=== PATIENT | male | born 1985 | race Caucasian/White ===

== ENCOUNTER 2019-05-11 21:43 | Inpatient (IN) ==
[2019-05-11] MEDS ORDERED: NS 1,000 ML IV ONE (23:29)
--- NOTE | 2019-05-11 23:43 | PROVIDER DOCUMENTATION ---
HPI-General Adult - General Chief Complaint: Syncope Stated Complaint: N/V, SYNCOPE Time Seen by Provider: 05/11/19 23:28 Source: patient Allergies/Adverse Reactions: Patient Allergies Allergy/AdvReac Type Severity Reaction Status Date / Time cefaclor [From Ceclor] Allergy Unknown Verified 05/11/19 21:51 cephalexin [From Keflex] Allergy Unknown Verified 05/11/19 21:51 erythromycin base Allergy Unknown Verified 05/11/19 21:51 Penicillins Allergy Unknown Verified 05/11/19 21:51 Home Medications: Home Medication List Medication Instructions Recorded Confirmed Last Taken Type NK [No Home Medications] 05/11/19 05/11/19 Unknown History - History of Present Illness -Gen Adult Nature of Presenting Problems: 33 YOM WITH RECENT BACTERMIA WITH HEART VALVE INVOLVEMENT WHO LEFT AMA FROM [facility] REPORTS HE IS HAVING THE SAME SYMPTOMS, WHICH ARE WEAKNESS, N/V AND SYNCOPAL EPISODE THIS AM. DENIES SOB, CP, DIARRHEA Location of Pain/Injury: reports: none Pain Radiation: reports: no radiation Quality of Pain: reports: none Severity: reports: moderate Onset/Duration: reports: unsure Timing: reports: still present Context/Activities at Onset: reports: none Modifying Factors: improves with: nothing Associated Symptoms: reports: nausea, vomiting Similar Symptoms Previously?: No Recently seen or treated by another doctor?: No Review of Systems - Adult - REVIEW OF SYSTEMS - ADULT Constitutional: reports: no symptoms reported. denies: see HPI, chills, fever, fatique, night sweats, weight gain, weight loss, other Eyes: reports: no symptoms reported. denies: see HPI, discharge, dry eyes, decreased vision, blurred vision, double vision, eye pain, redness, other Ears, Nose, Mouth & Throat: reports: no symptoms reported. denies: see HPI, ear discharge, ear pain, hearing loss, tinnitus, epistaxis, sinus problem, nose pain, loose teeth, mouth/dental pain, mouth swelling, hoarseness, throat pain, throat swelling, other Cardiovascular: reports: no symptoms reported. denies: see HPI, chest pain, edema, heart murmur, irregular heart rate, orthopnea, palpitations, poor circulation, PND, syncope, other Respiratory: reports: no symptoms reported. denies: see HPI, chronic cough, cough, dyspnea on exertion, excessive sputum production, hemoptysis, pleurisy, shortness of breath, wheezing, other Gastrointestinal: reports: see HPI, nausea, vomiting. denies: no symptoms reported, abdominal pain, hematemesis, constipation, diarrhea, difficulty swallowing, frequent heartburn, poor appetite, rectal bleeding, other Genitourinary: reports: no symptoms reported. denies: see HPI, dysuria, discharge, frequency, flank pain, frequent UTI's, hematuria, hesitency, i ncontinence, urinary retention, urgency, other Musculoskeletal: reports: no symptoms reported. denies: see HPI, bone pain, back pain, frequent leg cramps, joint pain, joint swelling, muscle aches, muscle weakness, neck pain, other Integumentary: reports: no symptoms reported. denies: see HPI, hives, hair loss, itching, mole changes, nail changes, rash, skin sores/ulcer, skin thickening, other Neurological: reports: see HPI, syncope Psychiatric: reports: no symptoms reported. denies: see HPI, anxiety, anti- depressant use, alcohol/drug dependence, depression, emotional problems, insomnia, panic attacks, suicidal thoughts, other Endocrine: reports: no symptoms reported. denies: see HPI, change in skin pigment, excessive sweating, goiter, cold intolerance, heat intolerance, increased hunger, increased thirst, polyuria, other Hematologic/Lymphatic: reports: no symptoms reported. denies: see HPI, blood clots, easy bruising, low blood count, lymphedema, prolonged bleeding, swollen lymph nodes, transfusions, other Allergic/Immunologic: reports: no symptoms reported. denies: see HPI, allergic reactions, allergic rhinitis, asthma, eczema, food allergy, frequent infections, hay fever, hives, positive PPD, urticaria, other Past History - Adult - PAST MEDICAL HISTORY-ADULT Review of Records: reports: Nursing Assessment Review, Social history reviewed & non-contributory. Physical Exam-General - PHYSICAL EXAM-ADULT Initial Vital Signs Reviewed: Yes - CONSTITUTIONAL General Appearance: alert, no apparent distress - EYES Eyes: PERRL/EOMI, pink conjunctivae - HEAD, EARS, NOSE, MOUTH & THROAT HENMT: normocephalic/atraumatic, moist mucous membranes, normal ENT inspection - NECK Neck: non-tender, full range of motion, supple - RESPIRATORY Respiratory: chest non-tender, lungs clear, normal breath sounds, no pleuratic chest pain, no respiratory distress, no accessory muscle use - CARDIOVASCULAR Cardiovascular: normal peripheral pulses, regular rate, rhythm, no edema, no gallop, no JVD - GASTROINTESTINAL (ABDOMEN) Abdominal Exam: normal bowel sounds, non tender, soft - LYMPHATIC Lymphatic: no adenopathy - MUSCULOSKELETAL Back Exam: normal inspection, no CVA tenderness, no vertebral tenderness Extremity: normal range of motion, non-tender, normal gait - SKIN Integumentary: normal color, normal turgor, warm/dry - NEUROLOGIC Neurologic: grossly normal - PSYCHIATRIC Psych/Mental Status: normal mood/affect, oriented x 3 Progress - PLAN OF CARE/RESULTS Progress/Plan/Lab Results: Vital Signs - 8 hr 05/11/19 21:46 Temperature 98.1 F Pulse Rate 99 H Respiratory Rate 16 Blood Pressure 138/104 O2 Sat by Pulse Oximetry 97 Orders Category Date Time Status Saline Loc NOW Care 05/11/19 23:29 Active CHEST-2 VIEWS [RAD] Stat Exams 05/11/19 23:29 Ordered BLOOD CULTURE [BLDCUL] Stat Lab 05/11/19 23:29 Uncollected CBC WITH ELECTRONIC DIFF [HEME] Stat Lab 05/11/19 23:28 Uncollected COMPREHENSIVE METABOLIC PANEL [CHEM] Stat Lab 05/11/19 23:29 Uncollected LACTATE, PLASMA [CHEM] Stat Lab 05/11/19 23:29 Uncollected 0.9% Sodium Chloride Inj [Ns] 1,000 ml Med 05/11/19 23:29 Active IV 999 mls/hr EKG [EKG] Stat Ther 05/11/19 23:29 Ordered Result Diagrams: 05/12/19 00:00 - CHANGE OF SHIFT REPORT (ED Provider) 1 Report Given and Care Transferred to:: DR CHASE Time of Transfer: 01:00 Items Pending: Labs, XRAY Results, Other (EKG) Departure - Departure Referrals and Follow-Ups: None,PCP [Primary Care Provider] -
[2019-05-12 00:32] LABS: BASO# 0.05 X1000 (0.0-0.2); BASO% 0.6 % (0.0-0.8); EOS# 0.69 X1000 (0.0-0.7); EOS% 8.2 % (0.0-10.0); HEMOGLOBIN 12.7 g/dL (14.0-18.0); IMM GRAN# 0.01 X1000 (0.0-0.04); IMM GRAN% 0.1 % (0.0-0.5); LYMPH# 3.72 X1000 (1.2-3.4); LYMPH% 44.2 % (20.5-51.1); MCHC 33.4 g/dL (33-37); MCV 89.6 FL (81-99); MONO# 0.75 X1000 (0.11-0.59); MONO% 8.9 % (1.7-9.3); MPV 12.1 FL (7.4-10.4); NEUT# 3.19 X1000 (1.4-6.5); PLT 235 X1000 (130-400); RBC 4.24 XMIL (4.7-6.1); RDW 12.5 % (11.5-14.5); WBC 8.41 X1000 (4.8-10.8)
[2019-05-12] MEDS ORDERED: ZOFRAN IV ONE (00:34)
[2019-05-12 00:56] LABS: MAGNESIUM 1.9 mg/dL (1.5-2.7)
[2019-05-12 00:57] LABS: AGAP 11; BUN 11 mg/dL (8-22); CALCIUM 8.9 mg/dL (8.8-10.2); CHLORIDE 101 mmol/L (98-107); COSMO 276; CREATININE 0.6 mg/dL (0.7-1.2); ESTIMATED GFR > 60; GLUCOSE 89 mg/dL (70-104); POTASSIUM 4.3 mmol/L (3.5-5.1); SODIUM 139 mmol/L (136-145); TCO2 27 mmol/L (25-35); TOTAL PROTEIN 7.4 g/dL (6.3-8.3)
[2019-05-12 00:58] LABS: ALBUMIN 4.4 g/dL (3.5-5.0); ALKALINE PHOSPHATASE 61 U/L (32-122); GOT 50 U/L (10-34); GPT 75 U/L (10-44)
[2019-05-12 01:24] LABS: INR 1.01; PROTIME 13.8 Seconds (11.0-16.0)
[2019-05-12 01:25] LABS: PTT 52.1 Seconds (22.3-41.8)
[2019-05-12 01:30] LABS: CK INDEX 0.7 (0.0-2.5); CK-MB 1.64 ng/mL (0.0-5.0)
[2019-05-12 02:30] LABS: BILIRUBIN URINE NEGATIVE (NEGATIVE); BLOOD URINE NEGATIVE (NEGATIVE); CLARITY CLEAR (CLEAR); COLOR YELLOW; GLUCOSE URINE NEGATIVE (NEGATIVE); KETONE URINE TRACE mg/dL (NEGATIVE); LEUKOCYTES URINE TRACE (NEGATIVE); NITRITE URINE NEGATIVE (NEGATIVE); PH URINE 6.5; PROTEIN URINE TRACE mg/dL (NEGATIVE); SP GRAVITY URINE 1.015; UROBILINOGEN URINE NORMAL
[2019-05-12 02:32] LABS: URINE BACTERIA 2+ /HFP; URINE EPITHELIAL CELLS <10 /HPF (<10); URINE RBC <10 /HPF (<10); URINE SOURCE CLEAN CATCH; URINE WBC <10 /HPF (<10)
[2019-05-12 02:56] LABS: UR AMPHETAMINES QUAL NONE DETECTED (NONE DETECT); UR BARBITUATES QUAL NONE DETECTED (NONE DETECT); UR BENZODIAZEPIN QUAL NONE DETECTED (NONE DETECT); UR CANNABINOIDS QUAL NONE DETECTED (NONE DETECT); UR COCAINE QUAL NONE DETECTED (NONE DETECT); UR METHADONE QUAL NONE DETECTED (NONE DETECT); UR METHAMPHETAMINE QUAL PRESUMPTIVE POSITIVE (NONE DETECT); UR OPIATES QUAL NONE DETECTED (NONE DETECT); UR OXYCODONE QUAL NONE DETECTED (NONE DETECT); UR PCP QUAL NONE DETECTED (NONE DETECT); UR PROPOXYPHENE QUAL NONE DETECTED (NONE DETECT); UR TCA QUAL NONE DETECTED (NONE DETECT)
--- NOTE | 2019-05-12 04:16 | EKG Report ---
Test Performed on : 05/12/2019 00:51:01 AM Test Reason : cp Blood Pressure : / mmHG Vent. Rate : 060 BPM Atrial Rate : 060 BPM P-R Int : 148 ms QRS Dur : 094 ms QT Int : 414 ms P-R-T Axes : 061 064 065 degrees QTc Int : 414 ms Normal sinus rhythm. Normal ECG No previous ECGs available Unconfirmed Result
--- NOTE | 2019-05-12 08:01 | Diag Imaging Result Doc PS360 ---
EXAM: CHEST-2 VIEWS - 05/11/2019 HISTORY: cp TECHNIQUE: Chest two views COMPARISON: None. FINDINGS: Heart size is normal. The lungs appear clear. There is no pleural effusion or pneumothorax identified. IMPRESSION: No evidence of acute disease. Electronically signed by Goyo Richard 05/12/2019 7:58 AM
[2019-05-12] MEDS ORDERED: VANCOMYCIN 1 GM/NS 1 GM/250 ML IVPB IV ONE ×2 (08:12→15:00)
[2019-05-12] MEDS ORDERED: NS 1,000 ML IV ONE (13:55)
[2019-05-12] MEDS ORDERED: VANCOMYCIN IV PER PHARMACY MISC SCH (13:55)
--- NOTE | 2019-05-12 14:01 | HISTORY AND PHYSICAL ---
PRIMARY CARE PHYSICIAN: None. CHIEF COMPLAINT: Nausea, vomiting, weakness and dizziness that began yesterday and progressively worsened. HISTORY OF PRESENTING ILLNESS: This is a 33-year-old male who presents to [facility] ER with complaints of nausea, vomiting, weakness, and dizziness that began yesterday and progressively worsened. He states that he was in [facility] and left AM after only a 2 week treatment for an MSSA bacteremia and possible endocarditis from what we can tell from the patient. He left about a week ago and is feeling worse since leaving. He states that he has used methamphetamines in this week since he has been out of the hospital. His reason for leaving was that he was going to require approximately 6 weeks worth of treatment and he was just tired of being in the hospital according to the patient. Today his workup was essentially benign. Again his urine drug screen was presumptive positive for methamphetamines. His chest x-ray showed no evidence of acute disease. His EKG showed normal sinus rhythm at 60. He will be admitted for further evaluation and treatment and we are faxing a request to [facility] to receive their medical records on this patient. PAST MEDICAL HISTORY: Of the MSSA bacteremia and endocarditis receiving only 2 out of 6 weeks worth of treatment before leaving AMA from the hospital, hepatitis C, IV drug use and methamphetamine use and tobacco abuse. PAST SURGICAL HISTORY: Tonsillectomy. FAMILY HISTORY: Reviewed and noncontributory. SOCIAL HISTORY: He states that he is homeless. Denies alcohol use. Smokes a half a pack of cigarettes a day. He uses IV drugs, but states he has not use the IV drugs since prior to being placed in the hospital. ALLERGIES: Cefaclor, cephalexin, erythromycin and penicillin. HOME MEDICATIONS: He does not take any medications on a routine basis that are prescribed. LABORATORY DATA: Showed a white blood cell count of 8.41, hemoglobin 12.7, hematocrit 38, platelets 235,000. PT and INR of 13.8 and 1.01. Sodium 139, potassium 4.3 chloride 101, CO2 27, BUN 11, creatinine 0.6, glucose 89, magnesium 1.9. AST of 50, ALT 75, creatine kinase of 230, CK- MB of 1.64. Troponin was less than 0.010. Plasma lactate of 0.8. Urinalysis was negative except for 2+ bacteria. Urine drug screen presumptive positive for methamphetamines. Chest x-ray showed no evidence of acute disease. EKG showed normal sinus rhythm. REVIEW OF SYSTEMS: He denied any fever, chills. He was having weakness. Denied any blurred vision or dizziness, chest pain, coughing, or shortness of breath. Denied any abdominal pain. He has had nausea, vomiting, and diarrhea. Denied any burning or hurting with urination. PHYSICAL EXAMINATION: On arrival he had a temperature of 98.1 degrees, pulse 99, respirations 16, blood pressure was 138/104, saturating at 97% on room air. Currently, blood pressure is down to 125/80. GENERAL: This is a 33-year-old male who is lying in the bed and answers questions appropriately. HEENT: Normocephalic, atraumatic. Normal ENT inspection. Oropharynx and nares are clear. EYES: Pupils are equal, round, reactive to light and accommodation. Extraocular movements are intact. NECK: Normal inspection. Normal range of motion. LUNGS: Clear to auscultation bilaterally with equal lung expansion and chest wall movement. HEART: Regular rate and rhythm. No murmurs, rubs, or gallops. ABDOMEN: Soft, nontender, nondistended. Bowel sounds are present x4 quadrants. MUSCULOSKELETAL: Musculoskeletal has 5/5 strength x4 extremities. Moves all extremities well. NEUROLOGICAL: The cranial nerves 2-12 are grossly intact. ASSESSMENT: 1. Recent Methicillin sensitive Staphylococcus aureus bacteremia with endocarditis after receiving only 2 weeks of treatment and leaving [facility] against medical advice. 2. Nausea, vomiting, and diarrhea. 3. Generalized weakness. 4. History of hepatitis C with some mild liver function test elevation. 5. Tobacco abuse. 6. Polysubstance abuse. Most recent with methamphetamine positive in urine drug screen our. PLAN: 1. He will be admitted, placed on a regular diet. 2. Normal saline at 100 mL an hour, vancomycin per pharmacy protocol. 3. We are requesting records from [facility]. 4. We are going to check an echocardiogram today. 5. Further orders after reviewing his medical record and after being seen by attending. Dictated by STEPHANI Soto for Ezequiel Kowalski MD cc: STEPHANI Soto MD
[2019-05-12] MEDS: NICODERM PATCH TD SCH (17:04)
--- NOTE | 2019-05-12 23:41 | ECHO REPORT ---
ORDER DATE: 05/12/2019 MEASUREMENTS: Septal thickness 0.7, left ventricular internal diameter in diastole 4.5, posterior wall thickness 0.9, aortic root 2.4, left atrium 2.6. SUMMARY: 1. Adequate quality study. 2. Aortic valve is trileaflet and opens normally on 2-dimensional images. Peak gradient across the aortic valve is less than 10 mmHg. Mitral, tricuspid, and pulmonic valves are without evidence of structural abnormality, with mild tricuspid regurgitation and trace mitral regurgitation. The estimated systolic PA pressure by Doppler is 40 mmHg, suggesting mild pulmonary hypertension. The aortic root is normal in size. 3. Normal left ventricular dimensions demonstrated. Estimated left ventricular ejection fraction appears to be at least 60%. No regional wall motion abnormalities are evident. Left atrium, right atrium, right ventricle are normal in size with grossly preserved right ventricular systolic function. 4. No pericardial effusion. 5. Appearance of inferior vena cava suggests normal central venous pressure. CONCLUSIONS: 1. Mild tricuspid regurgitation with mild pulmonary hypertension by Doppler. 2. Trace mitral regurgitation. 3. Normal left ventricular systolic function without wall motion abnormality evident. cc: MD Ezequiel Kennedy MD
[2019-05-13] MEDS: VANCOMYCIN 1,500 MG in NS 250 ML IV SCH ×2 (02:01→14:23)
[2019-05-13] MEDS: NICODERM PATCH TD SCH (09:31)
[2019-05-13] MEDS: MOTRIN PO PRN (20:33)
[2019-05-13] MEDS: TYLENOL PO PRN (20:33)
[2019-05-14] MEDS: VANCOMYCIN 1,500 MG in NS 250 ML IV SCH (01:53)
[2019-05-14] MEDS: PRILOSEC PO SCH (06:12)
[2019-05-14 06:46] LABS: BASO# 0.03 X1000 (0.0-0.2); BASO% 0.4 % (0.0-0.8); EOS# 1.04 X1000 (0.0-0.7); EOS% 14.9 % (0.0-10.0); HEMATOCRIT 36.1 % (42.0-52.0); HEMOGLOBIN 11.9 g/dL (14.0-18.0); IMM GRAN# 0.02 X1000 (0.0-0.04); IMM GRAN% 0.3 % (0.0-0.5); LYMPH# 3.43 X1000 (1.2-3.4); MCH 29.5 PG (27-31); MCV 89.6 FL (81-99); MONO# 0.57 X1000 (0.11-0.59); MONO% 8.1 % (1.7-9.3); MPV 12.3 FL (7.4-10.4); NEUT# 1.91 X1000 (1.4-6.5); NEUT% 27.3 % (42.2-75.2); PLT 222 X1000 (130-400); RBC 4.03 XMIL (4.7-6.1); RDW 12.4 % (11.5-14.5)
[2019-05-14 07:10] LABS: AGAP 10; BUN 10 mg/dL (8-22); CALCIUM 8.9 mg/dL (8.8-10.2); CHLORIDE 103 mmol/L (98-107); COSMO 278; CREATININE 0.8 mg/dL (0.7-1.2); ESTIMATED GFR > 60; GLUCOSE 91 mg/dL (70-104); POTASSIUM 4.2 mmol/L (3.5-5.1); SODIUM 140 mmol/L (136-145); TCO2 28 mmol/L (25-35)
[2019-05-14 07:17] LABS: ALKALINE PHOSPHATASE 59 U/L (32-122); DIRECT BILIRUBIN < 0.20 mg/dL (0.00-0.20); GOT 43 U/L (10-34); GPT 63 U/L (10-44); TOTAL PROTEIN 6.8 g/dL (6.3-8.3)
[2019-05-14] MEDS: NICODERM PATCH TD SCH (11:57)
[2019-05-14] MEDS: MOTRIN PO PRN ×2 (15:00→22:38)
[2019-05-14] MEDS: VANCOMYCIN 2,000 MG in NS 500 ML IV SCH (15:00)
--- NOTE | 2019-05-14 16:00 | PROGRESS NOTE ---
DATE: 05/14/2019 SUBJECTIVE: The patient is doing well. No complaints. OBJECTIVE: Vital Signs: Blood pressure 109/66, heart rate of 62, respiratory rate 18, temperature 99 degrees, satting 98% on room air. Cardiovascular: Regular rate and rhythm. Pulmonary: Bilateral breath sounds. Clear to auscultation. GI: Soft, nontender, nondistended. Bowel sounds are positive. LABORATORY DATA: White count is 7, hemoglobin and hematocrit 11 and 36. Basic was normal. AST and ALT are up a bit. PROBLEM LIST: 1. Methicillin-resistant Staphylococcus aureus bacteremia with possibility of endocarditis. Reportedly, reviewing old records, he did not have endocarditis per transesophageal echocardiogram. He did receive 2 weeks of intravenous antibiotics, although he left against medical advise and, at that time, he had methicillin-sensitive Staphylococcus aureus. In any case, we will continue intravenous antibiotics and continue to follow. I think he may need a total of 4 weeks. We will discuss with Dr. Evans tomorrow about treatment plan, and whether or not he needs a repeat transesophageal echocardiogram. If he has persistently positive blood cultures, then he will have to have that I think. 2. Hepatitis-C is stable. Continue to follow working up on labs. 3. Polysubstance abuse. We will offer counseling and continue to monitor. cc: Ezequiel Kowalski MD
[2019-05-14 16:45] LABS: INR MIXING STUDY 0 MIN 1.06; INR MIXING STUDY 30 MIN 1.04; PROTIME MIXING STUDY 3O MIN 13.7 Seconds (9.2-11.7); PROTIME MIXING STUDY 6O MIN 13.3 Seconds (9.2-11.7); PTT MIXING STUDY 3O MIN 33.8 Seconds (22.0-36.0); PTT MIXING STUDY 6O MIN 33.9 Seconds (22.0-36.0); PTT MIXING STUDY O MIN 34.5 Seconds (22.0-36.0)
[2019-05-14 16:46] LABS: INR MIXING STUDY 120 MIN 1.01; PROTIME MIXING STUDY 12O MIN 13.4 Seconds (9.2-11.7); PTT MIXING STUDY 12O MIN 34.3 Seconds (22.0-36.0)
[2019-05-14 18:36] LABS: HIV ANTIBODY SCREEN SEE COMMENTS
[2019-05-14] MEDS: COLACE PO SCH (22:35)
[2019-05-15] MEDS: VANCOMYCIN 2,000 MG in NS 500 ML IV SCH ×2 (03:12→15:23)
[2019-05-15] MEDS: PRILOSEC PO SCH (06:20)
[2019-05-15 06:55] LABS: BASO# 0.05 X1000 (0.0-0.2); BASO% 0.5 % (0.0-0.8); EOS# 1.28 X1000 (0.0-0.7); EOS% 13.9 % (0.0-10.0); HEMATOCRIT 36.6 % (42.0-52.0); IMM GRAN# 0.02 X1000 (0.0-0.04); IMM GRAN% 0.2 % (0.0-0.5); LYMPH# 3.87 X1000 (1.2-3.4); MCH 29.4 PG (27-31); MCHC 32.8 g/dL (33-37); MCV 89.7 FL (81-99); MONO# 0.73 X1000 (0.11-0.59); MONO% 7.9 % (1.7-9.3); MPV 11.9 FL (7.4-10.4); NEUT# 3.27 X1000 (1.4-6.5); NEUT% 35.5 % (42.2-75.2); PLT 222 X1000 (130-400); RBC 4.08 XMIL (4.7-6.1); RDW 12.5 % (11.5-14.5); WBC 9.22 X1000 (4.8-10.8)
[2019-05-15 07:06] LABS: AGAP 9; BUN 14 mg/dL (8-22); CALCIUM 9.2 mg/dL (8.8-10.2); CHLORIDE 102 mmol/L (98-107); COSMO 279; CREATININE 0.8 mg/dL (0.7-1.2); ESTIMATED GFR > 60; GLUCOSE 86 mg/dL (70-104); POTASSIUM 4.2 mmol/L (3.5-5.1); SODIUM 140 mmol/L (136-145); TCO2 29 mmol/L (25-35)
[2019-05-15] MEDS: NICODERM PATCH TD SCH (08:43)
[2019-05-15] MEDS: COLACE PO SCH (08:43)
[2019-05-15 12:07] LABS: HEPATITIS PROFILE ACUTE SEE COMMENTS
--- NOTE | 2019-05-15 18:07 | PROGRESS NOTE ---
DATE: 05/15/2019 SUBJECTIVE: Patient does not feel good today. No other major complaints. OBJECTIVE: Blood pressure is 98/51, heart rate 63, respiratory rate 18, temperature 98.3 degrees.Cardiovascular: Regular rate and rhythm. Pulmonary: Bilateral breath sounds clear to auscultation. Gastrointestinal: Soft, nontender, nondistended. Bowel sounds were positive. PROBLEM LIST: 1. Methicillin-resistant Staphylococcus aureus bacteremia in the setting of intravenous drug use. He was recently at [facility] for a similar process. There was a concern over possible endocarditis, but documentation from other records indicates that ROCHELLE was also negative for vegetation. He has had 2 sets of MRSA-positive blood cultures. Repeat blood cultures are no growth thus far. We will discuss with Dr Evans about need of a ROCHELLE in this setting since he just had one not too long ago. Organism is different, though, now so that may change perspective. We will continue vancomycin, which today will be each day 2. IV fluids and follow clinically. 2. Intravenous drug use. We have discussed about IV drug use, and patient understands, but he will have to comply and seek help when he leaves the hospital. cc: Ezequiel Kowalski MD [facility] DIVISIONKeeley
[2019-05-15] MEDS: NS 1,000 ML IV SCH (18:18)
[2019-05-15] MEDS: MOTRIN PO PRN (18:18)
[2019-05-16] MEDS: VANCOMYCIN 2,000 MG in NS 500 ML IV SCH ×2 (03:01→15:56)
[2019-05-16] MEDS: NS 1,000 ML IV SCH ×2 (06:14→15:56)
[2019-05-16] MEDS: PRILOSEC PO SCH (06:14)
[2019-05-16 06:57] LABS: BASO# 0.03 X1000 (0.0-0.2); BASO% 0.4 % (0.0-0.8); EOS# 1.07 X1000 (0.0-0.7); EOS% 14.2 % (0.0-10.0); HEMATOCRIT 33.8 % (42.0-52.0); HEMOGLOBIN 11.1 g/dL (14.0-18.0); LYMPH# 3.51 X1000 (1.2-3.4); LYMPH% 46.6 % (20.5-51.1); MCH 29.4 PG (27-31); MCHC 32.8 g/dL (33-37); MCV 89.7 FL (81-99); MONO# 0.64 X1000 (0.11-0.59); MONO% 8.5 % (1.7-9.3); MPV 12.1 FL (7.4-10.4); NEUT# 2.29 X1000 (1.4-6.5); NEUT% 30.3 % (42.2-75.2); PLT 216 X1000 (130-400); RBC 3.77 XMIL (4.7-6.1); RDW 12.6 % (11.5-14.5); WBC 7.54 X1000 (4.8-10.8)
[2019-05-16] MEDS ORDERED: PRILOSEC PO SCH (07:00)
[2019-05-16 07:24] LABS: AGAP 8; BUN 10 mg/dL (8-22); CALCIUM 9.1 mg/dL (8.8-10.2); CHLORIDE 104 mmol/L (98-107); COSMO 278; CREATININE 0.8 mg/dL (0.7-1.2); ESTIMATED GFR > 60; GLUCOSE 86 mg/dL (70-104); POTASSIUM 4.2 mmol/L (3.5-5.1); SODIUM 140 mmol/L (136-145); TCO2 28 mmol/L (25-35)
[2019-05-16] MEDS: COLACE PO SCH (10:20)
[2019-05-16] MEDS: NICODERM PATCH TD SCH (10:21)
[2019-05-17] MEDS: NS 1,000 ML IV SCH ×2 (01:04→10:01)
[2019-05-17] MEDS: MOTRIN PO PRN (01:04)
[2019-05-17] MEDS: VANCOMYCIN 2,000 MG in NS 500 ML IV SCH ×2 (03:38→14:38)
[2019-05-17] MEDS: PRILOSEC PO SCH (06:34)
[2019-05-17] MEDS ORDERED: REVIA PO ONE (08:44)
[2019-05-17] MEDS: COLACE PO SCH (10:00)
[2019-05-17] MEDS: NICODERM PATCH TD SCH (10:00)
[2019-05-17] MEDS ORDERED: VIVITROL IM ONE (14:00)
[2019-05-17 14:35] LABS: HCV BY PCR SEE COMMENTS
[2019-05-17] MEDS: TYLENOL PO PRN (16:36)
--- NOTE | 2019-05-17 20:14 | PROGRESS NOTE ---
DATE: 05/17/2019 SUBJECTIVE: Patient notes he has no complaints. Denies any fevers or chills. Denies any current chest pain. OBJECTIVE: Vital Signs: Temperature 98, pulse 60, respiratory rate 18, BP 117/66. General: Patient is awake, alert. He is in no distress. HEENT: Normocephalic. Neck: Supple. Cardiovascular: Regular rate. Chest: Clear. Abdomen: Soft. Extremities: Moves all extremities. ASSESSMENT: 1. Known IV drug user with methicillin-resistant Staphylococcus aureus bacteremia. We are going to transfer him to [facility] [place] for a ROCHELLE. 2. Hepatitis C. This appears to be a new diagnosis. He will need to follow up with GI of choice for treatment of his hepatitis. 3. Recreational drug use. Discussed with patient the perils of this. cc: Gatito Jo MD
[2019-05-18] MEDS: VANCOMYCIN 2,000 MG in NS 500 ML IV SCH ×2 (04:41→17:46)
[2019-05-18] MEDS: NS 1,000 ML IV SCH ×2 (04:43→06:50)
[2019-05-18] MEDS: PRILOSEC PO SCH (06:50)
[2019-05-18] MEDS ORDERED: NITROGLYCERIN SL PRN (10:06)
[2019-05-18] MEDS ORDERED: XANAX PO PRN (10:06)
[2019-05-18] MEDS ORDERED: TYLENOL PO PRN (10:06)
[2019-05-18] MEDS ORDERED: KLOR-CON PO PRN ×3 (10:06)
[2019-05-18] MEDS ORDERED: RESTORIL PO PRN (10:06)
[2019-05-18] MEDS ORDERED: PERCOCET-5 PO PRN (10:06)
[2019-05-18] MEDS ORDERED: MAGNESIUM SULFATE 2 GM in STERILE WATER INJ. 50 ML IV PRN ×4 (10:06)
[2019-05-18] MEDS ORDERED: CEPACOL SORE THROAT LOZENGE MT PRN (10:06)
[2019-05-18] MEDS ORDERED: MAGNESIUM SULFATE 3 GM in NS 100 ML IV PRN (10:06)
[2019-05-18] MEDS ORDERED: ZOFRAN IV PRN (10:06)
[2019-05-18] MEDS ORDERED: MILK OF MAGNESIA PO PRN (10:06)
[2019-05-18 10:43] LABS: BASO# 0.03 X1000 (0.0-0.2); BASO% 0.4 % (0.0-0.8); EOS# 1.02 X1000 (0.0-0.7); HEMATOCRIT 36.4 % (42.0-52.0); HEMOGLOBIN 12.5 g/dL (14.0-18.0); IMM GRAN# 0.02 X1000 (0.0-0.04); IMM GRAN% 0.3 % (0.0-0.5); LYMPH# 2.76 X1000 (1.2-3.4); LYMPH% 40.5 % (20.5-51.1); MCH 30.6 PG (27-31); MCHC 34.3 g/dL (33-37); MONO# 0.66 X1000 (0.11-0.59); MONO% 9.7 % (1.7-9.3); MPV 12.4 FL (7.4-10.4); NEUT# 2.33 X1000 (1.4-6.5); NEUT% 34.1 % (42.2-75.2); PLT 185 X1000 (130-400); RBC 4.09 XMIL (4.7-6.1); RDW 12.8 % (11.5-14.5); WBC 6.82 X1000 (4.8-10.8)
[2019-05-18 10:48] LABS: INR 1.11; PROTIME 14.4 Seconds (11.0-16.0)
[2019-05-18 10:50] LABS: PTT 49.8 Seconds (22.3-41.8)
[2019-05-18 11:05] LABS: AGAP 10; ALB/GLOB RATIO 1.2; ALKALINE PHOSPHATASE 60 U/L (32-122); BUN 5 mg/dL (8-22); CALCIUM 9.1 mg/dL (8.8-10.2); CHLORIDE 104 mmol/L (98-107); COSMO 280; CREATININE 0.9 mg/dL (0.7-1.2); ESTIMATED GFR > 60; GLUCOSE 89 mg/dL (70-104); GOT 116 U/L (10-34); GPT 154 U/L (10-44); MAGNESIUM 1.6 mg/dL (1.5-2.7); SODIUM 142 mmol/L (136-145); TCO2 28 mmol/L (25-35); TOTAL BILIRUBIN 0.65 mg/dL (0.20-1.00); TOTAL PROTEIN 7.3 g/dL (6.3-8.3)
[2019-05-18] MEDS ORDERED: XYLOCAINE-MPF 2% ONE (11:43)
[2019-05-18] MEDS ORDERED: DIPRIVAN 1% ONE ×2 (11:43→12:37)
[2019-05-18] MEDS: NICODERM PATCH TD SCH (11:44)
[2019-05-18] MEDS ORDERED: SODIUM CHLORIDE 0.9% 10 ML ONE (11:56)
[2019-05-18] MEDS ORDERED: XYLOCAINE 2% VISCOUS ONE ×2 (11:56→12:19)
[2019-05-18] MEDS ORDERED: XYLOCAINE 4% TOPICAL SOLUTION ONE (11:56)
[2019-05-18] MEDS ORDERED: CLAVE TWINSITE 32 IN 11959 ONE (12:19)
[2019-05-18] MEDS ORDERED: ANESTHESIA PB SET 88 IN 5742 ONE (12:19)
[2019-05-18] MEDS ORDERED: NS 1,000 ML ONE (12:19)
--- NOTE | 2019-05-18 12:47 | CONSULTATION ---
DATE OF CONSULTATION: 05/18/2019 IMPRESSION: 1. Transesophageal echocardiogram requested. The patient has had recurrent Staphylococcus aureus bacteremia, and screening for possible valvular vegetations requested. 2. Recent methicillin-sensitive Staphylococcus aureus bacteremia evaluated and treated at [facility]. 3. Hepatitis-C. 4. Chronic smoking. 5. Polysubstance abuse with most recent urine drug screen positive for methamphetamine. RECOMMENDATIONS: Transesophageal echocardiography discussed with the patient, including indications, potential hazards/risk of procedure. Patient voiced understanding and acknowledged familiarity with procedure based on his previous experience at [facility] in [place]. HISTORY: This 33-year-old white male with past history of hepatitis-C, polysubstance abuse, smoking and recent methicillin sensitive Staphylococcus aureus bacteremia was admitted with complaints of nausea, vomiting, weakness and dizziness. He was in [facility] several weeks ago with methicillin-sensitive Staphylococcus aureus bacteremia and possible endocarditis. He left against medical advice. He had been advised to have approximately 6 weeks of treatment. During this hospitalization, he was found to have methicillin-resistant Staphylococcus aureus bacteremia. Drug screen was presumptive positive for methamphetamines. Re- evaluation with transesophageal echocardiography was requested to screen for valvular vegetations, particularly in light of recurrent bacteremia. PAST MEDICAL HISTORY: 1. Hepatitis-C infection. 2. Methicillin-sensitive Staphylococcus aureus bacteremia several weeks ago. 3. IV drug use. 4. Polysubstance abuse with methamphetamine most recently. PAST SURGICAL HISTORY: Includes tonsillectomy. ALLERGIES: He is allergic or intolerant to Ceclor, cephalexin, erythromycin and penicillins. MEDICATIONS PRIOR TO ADMISSION: As listed. SOCIAL HISTORY: He is homeless. He smokes half-pack of cigarettes per day. He uses IV drugs. He also uses methamphetamine. Denies alcohol use. FAMILY HISTORY: Negative for premature coronary disease. REVIEW OF SYSTEMS: Pulmonary: Negative. Gastrointestinal: Noncontributory beyond history of present illness. Constitutional: Noncontributory beyond history of present illness. Remainder of review of systems negative/noncontributory beyond history of present illness with 14 total systems reviewed. PHYSICAL EXAMINATION: General: This is a thin adult white male in no distress on room air. Vital signs: Blood pressure 102/58, heart rate 56, oxygen saturation 99% on room air. HEENT Exam: Extraocular movements appear intact. Mucous membranes are moist. Neck: Supple without jugular venous distention. There are no carotid bruits. Chest: Clear to auscultation. Cardiac Exam: Reveals a regular rate and rhythm without appreciable murmur or gallop. Abdomen: Soft. Bowel sounds are normal. Extremities: Without edema. Neurologic Exam: Reveals him to be alert and fully oriented. Speech is fluent. Moves all 4 extremities equally well. PERTINENT DATA: Twelve lead EKG dated May 13, 2019, demonstrates normal sinus rhythm and is within normal limits. LABORATORY DATA: Includes a white blood cell count 7.54, hematocrit 33.8, hemoglobin 11.1, platelet count 216. Sodium 140, potassium 4.2, chloride 104, carbon dioxide 28. BUN 10, creatinine 0.8, glucose 86. cc: Sean Hightower MD
[2019-05-18] MEDS ORDERED: SUBOXONE 8 MG/2 MG SL SCH (15:17)
[2019-05-18] MEDS ORDERED: SUBOXONE 2 MG/0.5 MG SL ONE (15:42)
--- NOTE | 2019-05-18 15:42 | Transesophageal Echocardiogram ---
DATE: 05/18/2019 PHYSICIAN: Simón King MD. CLINICAL INDICATIONS: Suspected endocarditis, patient with MRSA bacteremia, use of intravenous drugs. PROCEDURE: Transesophageal echocardiography DESCRIPTION: The patient was brought to the cardiac laboratory manager in a fasting state. He was consented by Dr. Hightower. The patient's throat was anesthetized with Hurricaine and viscous lidocaine. He received intravenous propofol under the Anesthesia services of Dr. Logan. Once the patient was adequately sedated, his esophagus was intubated without difficulty. Multiple views of the heart were obtained. SUMMARY OF MAIN FINDINGS: 1. The left atrium and its appendage are normal. 2. The interatrial septum is normal. There is no evidence of PFO. 3. Agitated saline injected, negative for shunt. 4. The right atrium is normal. 5. The tricuspid valve is normal. 6. Pulmonic valve is normal. 7. Right ventricle normal. 8. The mitral valve is normal. 9. The aortic valve has 3 cusps. Color flow mapping unremarkable. 10.Aortic root is normal. 11.The RVOT and the proximal pulmonary artery and the right pulmonary artery proximally appear to be normal. 12.Pulmonary venous flow has normal pattern. 13.Left ventricle shows normal function. 14.The descending thoracic aorta is unremarkable. SUMMARY: This transesophageal echocardiogram is negative for the presence of endocardial vegetation. The patient tolerated the procedure well. Clinical correlation is recommended. cc: MD Sean Braden MD [facility]
--- NOTE | 2019-05-18 16:52 | PROGRESS NOTE ---
DATE: 05/18/2019 SUBJECTIVE: The patient has no major complaints. He is requesting to get on something like Suboxone because he has not had that before. He essentially is threatening to leave AMA if he does not get it. Now granted, he says he is willing to stay, but I think the issue is this happened when he was at [facility] and they refused to give him any treatment then. In any case, the patient is doing well. He seems to be doing well status post ROCHELLE. I cannot even tell that anything has happened. But in any case, he was discussing with Infectious Diseases about that. He states that he uses Suboxone and has abused it in the past as far as over taking it or injecting it I guess. OBJECTIVE: Vital Signs: Blood pressure 109/60, heart rate of 61, respiratory rate of 17, temperature 98.1 degrees, 100% on room air. Cardiovascular: Regular rate and rhythm. Pulmonary: Bilateral breath sounds. Clear to auscultation. GI: Soft, nontender, nondistended. Bowel sounds are positive. Extremities: No clubbing or cyanosis. Lymphatic: No peripheral edema. Neurological: Nonfocal. LABORATORY DATA: White count 6, hemoglobin and hematocrit 12 and 36, platelets 185,000. Basic was normal. AST of 116 and 154. Hep C: His hep C RNA is positive with a log of 5.3 which is active hep C. PROBLEM LIST: 1. Methicillin-resistant Staphylococcus aureus bacteremia. His ROCHELLE from what I understand was negative for vegetation, which it was negative a couple weeks ago too. I appreciate Cardiology input. We will continue IV antibiotics per recommendations of ID. He is currently on vancomycin because this is MRSA. Now since he is only bacteremic, I think 2 weeks of IV antibiotics may be sufficient. He is an IV drug user, so I think going home will be high risk because he is actively using. So perhaps we can get away with 2 weeks. His blood culture from the 13th will be day 1 because it is negative, I would presume. So he has already received 6 days, but we will follow guidelines per Dr. Evans. 2. History of intravenous drug use. I am going to initiate Suboxone at low dose just to prevent him from leaving AM and completing his medications. I indicated to him that we will not be able to discharge him on that. We will try to get social work to help him with detox programs, [facility], etc. cc: Ezequiel Kowalski MD
[2019-05-18] MEDS: COLACE PO SCH (17:46)
[2019-05-18] MEDS: ZOFRAN IV PRN (22:31)
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
[2019-05-19] MEDS: VANCOMYCIN 2,000 MG in NS 500 ML IV SCH ×2 (04:56→17:08)
[2019-05-19] MEDS: PRILOSEC PO SCH ×2 (04:57→06:19)
[2019-05-19] MEDS: LOVENOX SUBQ SCH (05:00)
[2019-05-19 07:28] LABS: BASO# 0.02 X1000 (0.0-0.2); BASO% 0.2 % (0.0-0.8); EOS# 0.97 X1000 (0.0-0.7); EOS% 11.1 % (0.0-10.0); HEMATOCRIT 33.7 % (42.0-52.0); HEMOGLOBIN 11.4 g/dL (14.0-18.0); LYMPH# 4.09 X1000 (1.2-3.4); MCH 30.3 PG (27-31); MCHC 33.8 g/dL (33-37); MCV 89.6 FL (81-99); MONO# 0.72 X1000 (0.11-0.59); MONO% 8.3 % (1.7-9.3); MPV 12.1 FL (7.4-10.4); NEUT# 2.91 X1000 (1.4-6.5); NEUT% 33.4 % (42.2-75.2); PLT 179 X1000 (130-400); RBC 3.76 XMIL (4.7-6.1); RDW 13.1 % (11.5-14.5); WBC 8.71 X1000 (4.8-10.8)
[2019-05-19 07:45] LABS: AGAP 9; BUN 6 mg/dL (8-22); CALCIUM 8.8 mg/dL (8.8-10.2); CHLORIDE 101 mmol/L (98-107); COSMO 275; CREATININE 0.8 mg/dL (0.7-1.2); ESTIMATED GFR > 60; GLUCOSE 100 mg/dL (70-104); POTASSIUM 3.7 mmol/L (3.5-5.1); SODIUM 139 mmol/L (136-145); TCO2 29 mmol/L (25-35)
[2019-05-19] MEDS: SUBOXONE 2 MG/0.5 MG SL SCH ×2 (09:54→20:09)
[2019-05-19] MEDS: NICODERM PATCH TD SCH (09:54)
[2019-05-19] MEDS: COLACE PO SCH (09:54)
[2019-05-19] MEDS: MOTRIN PO PRN ×2 (10:01→22:41)
--- NOTE | 2019-05-19 12:27 | PROGRESS NOTE ---
DATE: 05/19/2019 SUBJECTIVE: The patient reports feeling fine. Denies any fever or chills. OBJECTIVE: Vitals: Temperature 98.6 degrees, heart rate 66, respiratory rate 18, blood pressure 101/56, O2 saturation 99% on room air. General: This is a chronically ill-appearing 33-year-old, male, lying in bed, in no acute distress. Cardiovascular: S1, S2 heard. No murmurs, gallops, or rubs. Regular rate and rhythm. Respiratory: Clear bilaterally to auscultation. No work of breathing or using accessory muscles. Abdomen: Soft, nontender to palpation. Nondistended. Bowel sounds present. No organomegaly. Extremities: No clubbing, cyanosis, or edema. Peripheral pulses present in both legs. Neurologic: The patient is alert and oriented x3. Moves all 4 extremities. LABORATORY DATA: White cell count 8.71, hemoglobin 11.4, hematocrit 33.7, platelets 179,000. Normal BMP. ASSESSMENT AND PLAN: 1. Methicillin-resistant Staphylococcus aureus. Clinically, this patient is stable, not spiking any fever. We know that this patient is an active IV drug abuser. In that regard, he is receiving antibiotics with vancomycin. As we mentioned before, one of his drugs of choice is apparently heroin. The last time that he was in the hospital was in [place] when he left [facility] because he was not given any opiates. The patient has been told that he needs to stay in the hospital for 2 weeks to complete the treatment for this bacteremia. He does not have any endocarditis at this time. The patient has been started on Suboxone here, and now he is stable and happy staying for two weeks. I think the safest option for him is to keep him here. If we discharge this patient and we decide to provide antibiotics here in the hospital, I think this patient will re-engage in using and abusing IV illicit drugs, and then, I do not think he is going to follow with his treatment. Of course, he is also at high risk to let him go with a PICC line. I think the best option for him is to continue with the current treatment and keeping him here in the hospital with current treatment. Vancomycin has been given every 12 hours. We can switch to daptomycin to begin once per day, according to Dr. Evans. In any case, we will continue to monitor this patient closely. 2. History of IV drug abuse. As mentioned before, the patient is being provided Suboxone while he is in the hospital but he also is aware that we are not going to provide any of this medication after the patient is discharged. At this point, we will continue with the same management. cc: Josiah Vogel MD
[2019-05-19] MEDS: ZOFRAN IV PRN ×2 (12:46→20:17)
--- NOTE | 2019-05-19 15:33 | INFECTIOUS DISEASE PROGRESS NO ---
DATE: 05/19/2019 PRESENT ILLNESS: The patient has methicillin-resistant Staph aureus bacteremia. The patient's transesophageal echocardiogram shows that there is no vegetation seen. The patient also has an active case of hepatitis C. MEDICATIONS: The patient is on vancomycin. This is day 6 of treatment with vancomycin. Day 1 of treatment is the first day that the patient's blood cultures turned negative. PHYSICAL EXAMINATION: Vital Signs: Temperature is 98.6 degrees, pulse 66, respirations 18, blood pressure 101/56. General: This seems to be a fairly healthy-appearing, young male. He is in no acute distress. Head, eyes, ears, nose, and throat: He can hear my spoken words and see near objects. He does not have any white patches on his tongue. Neck: No pain with movement. Lungs: Clear to auscultation. Cardiovascular: Heart rate is regular. I did not hear a murmur. Abdomen: Soft, nontender. Integument: Patient has multiple tattoos. Neurologic: The patient is alert. He ambulates without difficulty. There is no tremor. LAB AND X-RAY: CBC shows a white count of 8710, hemoglobin 11.4, and platelet count 179,000. Creatinine is 0.8. GFR is greater than 60. HIV antibody was nonreactive. The patient's hepatitis panel was positive for hepatitis C. The patient's hepatitis C by PCR showed 200,229 copies. ASSESSMENT AND PLAN: The patient has methicillin-resistant Staph aureus bacteremia. The plan now is to complete a total of 14 days of treatment with vancomycin and then with this being day 6 of treatment. The patient also has an active case of hepatitis C. I have put in a consult for Dr. Whitney, who is on-call today for Gastroenterology. I have consulted Dr. Whitney to manage the patient's hepatitis C. COMORBIDITIES: The patient uses IV drugs. Patient also has hepatitis C. cc: Derek Evans MD
[2019-05-19] MEDS: BENADRYL PO PRN (21:53)
[2019-05-20] MEDS: PRILOSEC PO SCH (06:17)
[2019-05-20] MEDS: LOVENOX SUBQ SCH ×2 (06:17→06:20)
[2019-05-20 07:16] LABS: BASO# 0.04 X1000 (0.0-0.2); BASO% 0.5 % (0.0-0.8); EOS# 1.13 X1000 (0.0-0.7); EOS% 14.1 % (0.0-10.0); HEMATOCRIT 33.9 % (42.0-52.0); HEMOGLOBIN 11.5 g/dL (14.0-18.0); IMM GRAN# 0.02 X1000 (0.0-0.04); IMM GRAN% 0.2 % (0.0-0.5); LYMPH# 3.35 X1000 (1.2-3.4); LYMPH% 41.8 % (20.5-51.1); MCH 30.4 PG (27-31); MCHC 33.9 g/dL (33-37); MCV 89.7 FL (81-99); MONO# 0.71 X1000 (0.11-0.59); MONO% 8.9 % (1.7-9.3); NEUT# 2.77 X1000 (1.4-6.5); NEUT% 34.5 % (42.2-75.2); PLT 184 X1000 (130-400); RBC 3.78 XMIL (4.7-6.1); RDW 13.2 % (11.5-14.5); WBC 8.02 X1000 (4.8-10.8)
[2019-05-20 07:43] LABS: AGAP 13; BUN 9 mg/dL (8-22); CALCIUM 9.4 mg/dL (8.8-10.2); CHLORIDE 103 mmol/L (98-107); COSMO 283; CREATININE 0.8 mg/dL (0.7-1.2); ESTIMATED GFR > 60; GLUCOSE 83 mg/dL (70-104); POTASSIUM 4.2 mmol/L (3.5-5.1); SODIUM 143 mmol/L (136-145); TCO2 27 mmol/L (25-35)
[2019-05-20] MEDS: SUBOXONE 2 MG/0.5 MG SL SCH ×2 (08:47→21:01)
[2019-05-20] MEDS: COLACE PO SCH (08:47)
[2019-05-20] MEDS: NICODERM PATCH TD SCH ×3 (08:47→17:24)
[2019-05-20] MEDS ORDERED: VANCOMYCIN IV PER PHARMACY MISC SCH ×2 (10:45→13:30)
[2019-05-20] MEDS ORDERED: CUBICIN 400 MG in NS 100 ML IV SCH (11:30)
[2019-05-20] MEDS ORDERED: VANCOMYCIN 2,000 MG in NS 500 ML IV SCH (12:00)
--- NOTE | 2019-05-20 12:51 | PROGRESS NOTE ---
DATE: 05/20/2019 SUBJECTIVE: Patient reports feeling fine. Denies any fever or chills. OBJECTIVE: Vital Signs: Temperature 98.3 degrees, heart rate 58, respiratory rate 18, blood pressure 94/62, O2 saturation 99% on room air. General: This is a 33-year-old, male, lying in bed, in no acute distress. Cardiovascular: S1, S2 heard. No murmurs, gallops, or rubs. Regular rate and rhythm. Respiratory: Clear to bilaterally to auscultation. No work of breathing or using accessory muscles. Abdomen: Soft, nontender to palpation. No masses present. No organomegaly. Extremities: No clubbing, cyanosis, or edema. Peripheral pulses present in both legs. Neurological: Patient alert and oriented x3. Moves all extremities. LABORATORY DATA: Reviewed. ASSESSMENT AND PLAN: 1. Methicillin resistant Staphylococcus aureus bacteremia. The patient is on vancomycin but apparently he had another reaction yesterday. Apparently it was rash this patient had. In any case, that medication has been stopped. I think daptomycin will be a good option for him but because Dr. Evans is on board, we will leave it to him to decide what medication we are going to use. Plan for this patient is to keep him until 05/27/2019 when he finishes 2 weeks of antibiotics. Then he can be discharged. In the meantime, we will continue with Suboxone now for his active IV drug abuse. We will go from there. 2. Hepatitis C, that was new diagnosis. Gastroenterology has evaluated this patient and reports that he needs to be clean for 6 months before starting any treatment for this infection. At this time, we will continue to monitor. 3. History of IV drug abuse. Patient receiving Suboxone. 4. Disposition. We will continue to monitor this patient closely. cc: Josiah Vogel MD
[2019-05-20] MEDS: VANCOMYCIN 2,000 MG in NS 500 ML IV SCH (15:18)
[2019-05-20] MEDS: ZOFRAN IV PRN (15:19)
--- NOTE | 2019-05-20 15:26 | INFECTIOUS DISEASE PROGRESS NO ---
DATE: 05/20/2019 HISTORY OF PRESENT ILLNESS: Mr. Shaw has a methicillin-resistant Staph aureus bacteremia as well as hepatitis C. MEDICATIONS: He is receiving IV vancomycin per pharmacy dosing based on his sterile blood cultures. Today is day 7 of his treatment. PHYSICAL EXAMINATION: Vital Signs: Temperature is 98.3 degrees, pulse rate 58, respiratory rate 18, blood pressure 85/44, O2 saturation 99% on room air. General: This is a fairly healthy- appearing young man. He is lying in bed on his left lateral side currently in no acute distress. HEENT: Atraumatic, normocephalic. Oral mucous membranes are pink and moist. Conjunctivae are pink. Neck: Supple. Trachea is midline. Cardiovascular: Heart rate is regular. Respiratory: Lung sounds are clear to auscultation bilaterally. Abdomen: Soft, flat, nontender. Bowel sounds are active. Integumentary: Skin is warm and dry. He has multiple tattoos. Neurologic: He is awake, alert, oriented, able to move around independently out of bed. LABORATORY AND X-RAY: Today, his white count is 8.02, hemoglobin 11.5, platelet count 184,000. Creatinine is 0.8. Estimated GFR is greater than 60. No imaging reports today. However previous ROCHELLE was negative for any vegetation. ASSESSMENT AND PLAN: Mr. Shaw has a methicillin resistant Staphylococcus aureus bacteremia and will need a total of 14 days of treatment with vancomycin. Today is day 7. He should be able to be discharged in 7 more days. He also has an active case of hepatitis C and is being followed by Dr. Serrano. These plans have been discussed with and recommended by Dr. Evans. COMORBIDITIES: For Mr. Shaw include hepatitis C and IV drug use. Dictated by STEPHANI Carrillo for Derek Evans MD cc: Derek Evans MD
--- NOTE | 2019-05-20 18:50 | GASTROENTEROLOGY CONSULTATION ---
DATE: 05/20/2019 REASON FOR CONSULTATION: Hepatitis C. HISTORY OF PRESENT ILLNESS: This is a 33-year-old male who came into the emergency room for nausea, vomiting, dizziness. Patient had recently been at [facility] for bacteremia and possible endocarditis. The patient was on antibiotics but left against medical advice because he was tired of being in the hospital. He was going to have to be in the hospital for several weeks to finish IV treatment. When asked about patient's hepatitis C diagnosis he states he was diagnosed in 2014. He had been unable to undergo treatment because of lack of insurance. He is homeless. He does report history of IV drug use. His last IV drug use was prior to his hospitalization at [facility]. The patient's partner is at the bedside. When asked about his diagnosis, patient's partner states he has been checked for hepatitis C and was negative. Patient had HIV test in the hospital that was negative. HCV RNA was 200,229, HCV log 5.3. Currently he denies complaints. PAST MEDICAL HISTORY: Bacteremia, history of endocarditis and received I think 2 of 6 weeks of treatment before he left AMA at [facility], history of hepatitis C diagnosed in 2014 naive to treatment, history of IV drug use, history of methamphetamine use and tobacco use. PAST SURGICAL HISTORY: Tonsillectomy. ALLERGIES: Ceclor, Keflex, erythromycin and penicillin with unknown reported reaction. HOME MEDICATIONS: None reported. SOCIAL HISTORY: Patient states he is homeless. He has a partner who is at the bedside with him today. Denies alcohol use. He states his last drug use was prior to his hospitalization at [facility] last month. REVIEW OF SYSTEMS: Per history of present illness. PHYSICAL EXAMINATION: Vital Signs: Temperature 98.3 degrees, pulse 54, blood pressure 103/65. General: Patient is awake and alert. No acute distress. HEENT: Normocephalic, atraumatic. Pupils equal, round, reactive to light. Sclerae nonicteric. Skin: The patient has multiple tattoos. Cardiovascular: Regular rate and rhythm. Respiratory: Lung sounds clear. Abdomen: Soft, nontender. Positive bowel sounds. Extremities: No lower extremity edema noted. Neurologic: Cranial nerves 2 thru 12, patient was awake, alert, oriented to person, place, and time. LABORATORY: Hematology. WBC 8.02, hemoglobin 11.5, hematocrit 33.9, MCV 89.7. Coagulation. Pro time 14.1, INR 1.11, PTT 49.8. Chemistry. Sodium 143, potassium 4.2, chloride 103, CO2 27, BUN 9, creatinine 0.8, glucose 83, AST 116, ALT 154, alkaline phosphatase 60, this was on 05/18/2019. The patient has had transesophageal echocardiogram with no evidence of endocardial vegetation noted. Patient is on antibiotics for history of endocarditis diagnosed at [facility]. Serology. Hepatitis panel reactive for hepatitis C, HCV RNA viral load 200,229. HIV antibody was nonreactive. ASSESSMENT AND PLAN: 1. Methicillin-resistant Staphylococcus bacteremia. Patient is on antibiotics following with Dr. Evans. 2. Hepatitis C diagnosed in 2014 but never treated. Patient has a history of intravenous drug use most recent as last month. HCV viral load was 200,000. Genotype has been ordered. I have discussed with the patient the regimen for treatment for hepatitis C. He would need to be intravenous drug use clear for 6 months before trying to get medication. He does not have insurance so we would have to go through patient assistance through the [employer]. I have given him our contact information to follow up with us once he has been out of rehab and clean for 6 months. Further plans to be made as needed. I have discussed the case with Dr. Serrano. We will currently sign off. Please reconsult GI as needed. Patient is aware to follow up with us once he is clean from drugs. Thank you for this consultation. I have discussed this case with Dr. Serrano. Dictated by STEPHANI De Luna for Dar Serrano MD cc: STEPHANI Edward MD
[2019-05-21] MEDS: VANCOMYCIN 2,000 MG in NS 500 ML IV SCH ×2 (03:41→15:02)
[2019-05-21] MEDS: ZOFRAN IV PRN ×2 (03:42→15:09)
[2019-05-21] MEDS: LOVENOX SUBQ SCH (05:28)
[2019-05-21] MEDS: PRILOSEC PO SCH (06:13)
--- NOTE | 2019-05-21 10:55 | PROGRESS NOTE ---
DATE: 05/21/2019 SUBJECTIVE: Patient reports feeling fine. Reports 1 episode of temperature of 99.9 degrees. No chills. OBJECTIVE: Vital Signs: Temperature 98.8 degrees, heart rate 81, respiratory rate 18, blood pressure 109/60, O2 saturation 100% on room air. General: This is a 33-year-old, male, lying in bed, in no acute distress. Cardiovascular: S1, S2 heard. No murmurs, gallops, or rubs. Regular rate and rhythm. Respiratory: Clear bilaterally to auscultation. No work of breathing or using accessory muscles. Abdomen: Soft, nontender to palpation. Bowel sounds present. No organomegaly. Extremities: No clubbing, cyanosis, or edema. Peripheral pulses present in both legs. Neurological: Patient is alert and oriented x3. Moves 4 extremities. LABORATORY DATA: Reviewed. ASSESSMENT AND PLAN: 1. Methicillin-resistant Staphylococcus aureus bacteremia. Patient reports feeling fine. Apparently there was a possible adverse reaction to vancomycin but Infectious Disease decided to continue with vancomycin. He will be in the hospital until May 27 when he finishes 2 weeks of antibiotics. 2. Hepatitis C. Newly diagnosed. Gastroenterology has recommended to admit the patient to be clean for 6 months in order to start treating an infection. At this point, we will continue to monitor. 3. History of active IV drug abuse. Patient receiving Suboxone here but we will not be able to prescribe that medication at discharge and he is aware that. 4. Disposition. We will continue to monitor this patient closely. cc: Josiah Vogel MD MTDD
[2019-05-21] MEDS: SUBOXONE 2 MG/0.5 MG SL SCH ×2 (11:26→19:26)
[2019-05-21] MEDS: COLACE PO SCH (11:27)
[2019-05-21] MEDS: NICODERM PATCH TD SCH (11:27)
[2019-05-21] MEDS: BENADRYL PO PRN (17:49)
[2019-05-21] MEDS: MOTRIN PO PRN (19:26)
[2019-05-21] MEDS ORDERED: BENADRYL IV ONE (19:44)
[2019-05-22] MEDS: SUBOXONE 2 MG/0.5 MG SL SCH ×3 (03:40→20:42)
[2019-05-22] MEDS: VANCOMYCIN 2,000 MG in NS 500 ML IV SCH (03:40)
[2019-05-22] MEDS: LOVENOX SUBQ SCH (06:36)
[2019-05-22 07:31] LABS: BASO# 0.03 X1000 (0.0-0.2); BASO% 0.4 % (0.0-0.8); EOS# 1.08 X1000 (0.0-0.7); EOS% 13.8 % (0.0-10.0); HEMATOCRIT 35.4 % (42.0-52.0); HEMOGLOBIN 11.9 g/dL (14.0-18.0); IMM GRAN# 0.02 X1000 (0.0-0.04); IMM GRAN% 0.3 % (0.0-0.5); LYMPH# 3.01 X1000 (1.2-3.4); LYMPH% 38.3 % (20.5-51.1); MCH 30.4 PG (27-31); MCHC 33.6 g/dL (33-37); MCV 90.3 FL (81-99); MONO# 0.73 X1000 (0.11-0.59); MONO% 9.3 % (1.7-9.3); MPV 11.9 FL (7.4-10.4); NEUT# 2.98 X1000 (1.4-6.5); NEUT% 37.9 % (42.2-75.2); PLT 169 X1000 (130-400); RBC 3.92 XMIL (4.7-6.1); RDW 13.3 % (11.5-14.5); WBC 7.85 X1000 (4.8-10.8)
[2019-05-22 07:54] LABS: AGAP 10; BUN 6 mg/dL (8-22); CALCIUM 9.3 mg/dL (8.8-10.2); CHLORIDE 100 mmol/L (98-107); COSMO 279; CREATININE 0.8 mg/dL (0.7-1.2); ESTIMATED GFR > 60; GLUCOSE 126 mg/dL (70-104); POTASSIUM 4.2 mmol/L (3.5-5.1); SODIUM 140 mmol/L (136-145); TCO2 30 mmol/L (25-35)
[2019-05-22] MEDS: COLACE PO SCH (09:45)
[2019-05-22] MEDS: NICODERM PATCH TD SCH (09:45)
--- NOTE | 2019-05-22 12:18 | PROGRESS NOTE ---
DATE: 05/22/2019 SUBJECTIVE: The patient reports an allergic reaction to vancomycin yesterday night, so he refused to continue taking that medication. OBJECTIVE: Vital Signs: Temperature 99.1 degrees, heart rate 70, respiratory rate 20, blood pressure 98/53, O2 saturation 100% on room air. General Examination: This is a chronically ill- appearing, 33-year-old, male, lying in bed, in no acute distress. Cardiovascular Examination: S1 and S2 heard. No murmurs, gallops, or rubs. Regular rate and rhythm. Respiratory Examination: Clear bilaterally to auscultation. No work of breathing or using accessory muscles. Abdomen: Soft, nontender to palpation. Bowel sounds present. No organomegaly. Extremities: No clubbing, cyanosis, or edema. Peripheral pulses present in both legs. Neurological Examination: The patient is alert and oriented x3. Moves all four extremities. Laboratory Data: Reviewed. ASSESSMENT AND PLAN: 1. Methicillin-resistant Staphylococcus aureus bacteremia. The patient has been on vancomycin but because of an allergic reaction, we are going to continue with daptomycin. The patient is supposed to be in the hospital until May 27 when he finished 2 weeks to oral antibiotics. Then he can be discharged. Infectious disease is following this patient. We will follow recommendations. 2. Hepatitis C. That was just diagnosed here. Gastroenterology has evaluated this patient and they said that the patient needs to be clean for 6 months in to start any treatment for this infection. Patient is aware of that. 3. History of active intravenous drug abuse. The patient is on Suboxone here but he knows that we will not be able to prescribe the medication at discharge. He is aware that he needs to look for a place, like a detox clinic for him. 4. Disposition. We will continue to monitor this patient closely. cc: Josiah Vogel MD
[2019-05-22] MEDS: CUBICIN 500 MG in NS 100 ML IV SCH (16:18)
[2019-05-22] MEDS: ZOFRAN IV PRN (16:22)
[2019-05-22] MEDS: MOTRIN PO PRN (16:22)
[2019-05-23] MEDS: ZOFRAN IV PRN (00:12)
[2019-05-23] MEDS: PRILOSEC PO SCH ×2 (05:56→10:38)
[2019-05-23] MEDS: LOVENOX SUBQ SCH (05:57)
[2019-05-23] MEDS: COLACE PO SCH (10:38)
[2019-05-23] MEDS: NICODERM PATCH TD SCH (10:38)
[2019-05-23] MEDS: SUBOXONE 2 MG/0.5 MG SL SCH ×2 (10:38→21:54)
--- NOTE | 2019-05-23 12:36 | PROGRESS NOTE ---
DATE: 05/23/2019 SUBJECTIVE: The patient has no major complaints. OBJECTIVE: Vital Signs: Blood pressure 99/48, heart rate 71, respiratory rate 21, temperature 98.3 degrees. Cardiovascular: Regular rate and rhythm. Pulmonary: Bilateral breath sounds. Clear to auscultation. GI: Soft, nontender, nondistended. Bowel sounds are positive. LABORATORY DATA: White count 7, hemoglobin and hematocrit 11 and 35, platelets 169,000. PROBLEM LIST: 1. Methicillin-resistant staphylococcus aureus bacteremia. We are switching him to daptomycin because he may have had an allergic reaction to vancomycin, and we will follow. Two weeks will be 05/27/2019 because 05/13/2019 will be day 1 based on negative blood cultures, and he does not have endocarditis. 2. Hepatitis C is active. Will just need to make sure he follows up with Gastroenterology. 3. History of intravenous drug use. I have placed him on some Suboxone. Will need to start possibly tapering that just because he is not going to be able to go home on it. Continue to follow. 4. Disposition pending his clinical status. His blood pressure has been on the low side, so I am going to give him a little bit of fluid, and will follow. Again, I anticipate discharge on 05/27/2019, which is Thursday. cc: Ezequiel Kowalski MD
[2019-05-23] MEDS: MIRALAX PO SCH (14:40)
[2019-05-23] MEDS: NS 1,000 ML IV SCH (14:40)
[2019-05-23] MEDS: CUBICIN 500 MG in NS 100 ML IV SCH (16:41)
--- NOTE | 2019-05-23 20:00 | INFECTIOUS DISEASE PROGRESS NO ---
DATE: 05/23/2019 PRESENT ILLNESS: Mr. Shaw is being treated for methicillin-resistant Staphylococcus aureus bacteremia, as well as hepatitis C. MEDICATIONS: Based on his sterile blood cultures, today is day 10 of treatment for his bacteremia. He is currently receiving daptomycin 500 mg IV every 24 hours. PHYSICAL EXAMINATION: Vital Signs: Temperature is 98.3 degrees, pulse rate 109, respiratory rate 20, blood pressure 113/80, O2 saturation 100% on room air. General: This is a somewhat ill appearing young man. He is lying in bed, currently in no acute distress. HEENT: Atraumatic, normocephalic. Oral mucous membranes are pink and moist. Conjunctivae are pink. Neck: Supple. Trachea is midline. Cardiovascular: Heart rate is regular S1, S2 noted. Respiratory: Lung sounds are clear to auscultation bilaterally. No work of breathing is noted. Abdomen: Soft, flat, nontender. Bowel sounds are active. He does have some soreness noted to his right flank. Integumentary: Skin is warm and dry with multiple tattoos. Neurologic: He is awake, alert, oriented, and able to move around independently in the room. LABORATORY AND X-RAY: None available today. It looks like he must have refused his blood work this morning, because it was ordered. No imaging reports noted. The previous ROCHELLE was negative for vegetation. ASSESSMENT AND PLAN: Mr. Shaw has a methicillin-resistant Staphylococcus aureus bacteremia which is a result of IV drug use. He will need a total of 14 days of treatment for the bacteremia. At this point, he is on day 10. The plan is to keep him here in the hospital until he has completed the treatment. Today, he is complaining of some just generalized weakness, and not feeling well. We will check his creatine kinase in the morning along with his regular blood work. The plan is for him to be discharged after his last dose of medication on . These plans have been discussed with and recommended by Dr. Evans. COMORBIDITIES: For Mr. Shaw include cigarette smoking, hepatitis C and IV drug use. Dictated by STEPHANI Carrillo for Derek Evans MD cc: Derek Evans MD [facility]
[2019-05-23] MEDS: DULCOLAX PR PRN (22:00)
[2019-05-24] MEDS: BENADRYL PO PRN ×2 (05:12→16:52)
[2019-05-24] MEDS: PRILOSEC PO SCH (06:40)
[2019-05-24] MEDS: LOVENOX SUBQ SCH (06:40)
[2019-05-24 06:45] LABS: BASO# 0.03 X1000 (0.0-0.2); BASO% 0.4 % (0.0-0.8); EOS# 0.77 X1000 (0.0-0.7); EOS% 10.8 % (0.0-10.0); HEMOGLOBIN 12.2 g/dL (14.0-18.0); LYMPH# 2.82 X1000 (1.2-3.4); LYMPH% 39.7 % (20.5-51.1); MCH 30.4 PG (27-31); MCHC 33.9 g/dL (33-37); MCV 89.8 FL (81-99); MONO# 0.66 X1000 (0.11-0.59); MONO% 9.3 % (1.7-9.3); MPV 11.5 FL (7.4-10.4); NEUT# 2.83 X1000 (1.4-6.5); NEUT% 39.8 % (42.2-75.2); PLT 177 X1000 (130-400); RBC 4.01 XMIL (4.7-6.1); RDW 12.8 % (11.5-14.5); WBC 7.11 X1000 (4.8-10.8)
[2019-05-24 07:05] LABS: AGAP 12; BUN 8 mg/dL (8-22); CALCIUM 9.9 mg/dL (8.8-10.2); CHLORIDE 95 mmol/L (98-107); COSMO 266; CREATININE 0.7 mg/dL (0.7-1.2); ESTIMATED GFR > 60; GLUCOSE 149 mg/dL (70-104); POTASSIUM 3.8 mmol/L (3.5-5.1); SODIUM 132 mmol/L (136-145); TCO2 25 mmol/L (25-35)
[2019-05-24] MEDS: COLACE PO SCH (10:21)
[2019-05-24] MEDS: NICODERM PATCH TD SCH (10:21)
[2019-05-24] MEDS: SUBOXONE 2 MG/0.5 MG SL SCH ×2 (10:21→21:31)
[2019-05-24] MEDS: MIRALAX PO SCH (10:21)
[2019-05-24] MEDS: NS 1,000 ML IV SCH ×2 (10:26→16:47)
--- NOTE | 2019-05-24 15:33 | PROGRESS NOTE ---
DATE: 05/24/2019 SUBJECTIVE: Patient has no major complaints. OBJECTIVE: Vital Signs: Blood pressure is 86/43, heart rate 68, respiratory 19, temperature 98.8 degrees. Cardiovascular: Regular rate and rhythm. Pulmonary: Bilateral breath sounds. Clear to auscultation. GI: Soft, nontender, nondistended. Bowel sounds are positive. Extremity Exam: No clubbing or cyanosis. Lymphatic Exam: No peripheral edema. Neurological Exam: Nonfocal. LABORATORY DATA: White count 7, hemoglobin and hematocrit 12 and 36, platelets 177. Basic was normal. CK was 76. PROBLEM LIST: 1. Methicillin-resistant Staphylococcus aureus bacteremia. He is doing better today. Will be day 10 of treatment, and he will have 4 more days of treatment. 2. Hepatitis C. He will need outpatient treatment. 3. History of intravenous drug use. I am going to start tapering further, so we will continue to follow because he will not be able to go home on that medication. DISPOSITION: Pending clinical status. Anticipate discharge again in 4 days. cc: Ezequiel Kowalski MD
[2019-05-24] MEDS: CUBICIN 500 MG in NS 100 ML IV SCH (15:41)
[2019-05-24] MEDS: DULCOLAX PR PRN (15:44)
[2019-05-24] MEDS: MOTRIN PO PRN (15:49)
[2019-05-25] MEDS: PRILOSEC PO SCH (06:09)
[2019-05-25] MEDS: LOVENOX SUBQ SCH (06:09)
[2019-05-25] MEDS: MIRALAX PO SCH (08:54)
[2019-05-25] MEDS: COLACE PO SCH (08:54)
[2019-05-25] MEDS: NICODERM PATCH TD SCH (08:54)
[2019-05-25] MEDS ORDERED: SUBOXONE 2 MG/0.5 MG SL SCH (09:00)
[2019-05-25] MEDS ORDERED: NS 500 ML IV ONE (09:34)
[2019-05-25] MEDS: NS 1,000 ML IV SCH (10:18)
[2019-05-25] MEDS: DULCOLAX PR PRN (15:17)
[2019-05-25] MEDS: TYLENOL PO PRN (15:17)
[2019-05-25] MEDS: CUBICIN 500 MG in NS 100 ML IV SCH (15:17)
--- NOTE | 2019-05-25 15:32 | INFECTIOUS DISEASE PROGRESS NO ---
DATE: 05/25/2019 PRESENT ILLNESS: Mr. Shaw is being treated for methicillin-resistant Staphylococcus aureus bacteremia. MEDICATIONS: Today is day 12 of treatment for his bacteremia, based on his sterile blood cultures. He is currently receiving daptomycin 500 mg IV every 24 hours. PHYSICAL EXAMINATION: Vital Signs: Temperature is 98.4 degrees, pulse rate 76, respiratory rate 22, blood pressure 117/61, O2 saturations 100% on room air. General: This is a fairly healthy- appearing young man. He is lying in bed, currently in no acute distress. HEENT: Atraumatic, normocephalic. Oral mucous membranes are pink and moist. Conjunctivae are pink. Neck: Supple. Trachea is midline. Cardiovascular: Heart rate is regular. Respiratory: Lung sounds are clear to auscultation bilaterally. No work of breathing is noted. Abdomen: Soft, flat, and nontender. Bowel sounds are active. Integumentary: Skin is warm and dry. No rashes or lesions noted. Multiple tattoos noted. Neurologic: He is awake, alert, oriented, and able to ambulate independently. LABORATORY AND X-RAY: No blood work today. However, yesterday, his white count was 7.11, hemoglobin 12.2, platelet count 177,000. Creatinine 0.7, estimated GFR greater than 60 and creatine kinase 76. No imaging reports. ASSESSMENT AND PLAN: Mr. Shaw is being treated for a methicillin-resistant Staphylococcus aureus bacteremia which was a result of IV drug abuse. Today is day 12 of a 14 day treatment he will need for the bacteremia. Our plan is for him to have a dose again tomorrow and then on Thursday which will complete his treatment. After his dose on Thursday, he can be discharged. I have put a stop date for after that dose is given on Thursday afternoon. There will be no need to follow up with us. He is planning on going to rehab for his drug addiction once he is discharged. These plans have been discussed with and recommended by Dr. Evans. COMORBIDITIES: For Mr. Shaw include cigarette smoking, hepatitis C and IV drug abuse. Dictated by STEPHANI Carrillo for Derek Evans MD cc: MD SHOAIB Padilla
--- NOTE | 2019-05-25 15:35 | PROGRESS NOTE ---
DATE: 05/25/2019 SUBJECTIVE: Patient has no major complaints. He does complain of just diffuse aches and pains related to he just does not feel good sometimes, but other than that he is pretty stable. PHYSICAL EXAMINATION: Vital Signs: Blood pressure is 117/61, heart rate of 76, respiratory rate of 22, temperature 98.4 degrees. Cardiovascular: Regular rate and rhythm. Pulmonary: Bilateral breath sounds. Clear to auscultation. GI: Soft, nontender, nondistended. Bowel sounds were positive. LABORATORY DATA: White count is 7, H and H 12 and 36, platelets 177. Sodium 132. PROBLEM LIST: 1. Methicillin-resistant Staphylococcus aureus bacteremia. He is on day 12 I think of treatment if I am counting the days right, the 27th should be 2 weeks. 2. Hepatitis-C is stable. Continue to follow. He will need outpatient antiviral treatment. 3. History of drug use. He is on a lower dose of buprenorphine. I will continue to wean it just because I want him to be off of it I guess. DISPOSITION: Anticipate discharge Thursday after his dose of antibiotic. cc: Ezequiel Kowalski MD
[2019-05-25] MEDS: BENADRYL PO PRN (17:20)
[2019-05-25] MEDS: SUBOXONE 2 MG/0.5 MG SL SCH (21:30)
[2019-05-25 22:41] LABS: HCV GENOTYPE RESOLUTION SEE COMMENTS; HEPATITIS C GENOTYPE SEE COMMENTS
[2019-05-26] MEDS: NS 1,000 ML IV SCH ×3 (00:24→09:13)
[2019-05-26] MEDS: PRILOSEC PO SCH (06:03)
[2019-05-26] MEDS: LOVENOX SUBQ SCH (06:03)
[2019-05-26 07:38] LABS: BASO# 0.03 X1000 (0.0-0.2); BASO% 0.5 % (0.0-0.8); EOS# 0.84 X1000 (0.0-0.7); EOS% 12.9 % (0.0-10.0); HEMATOCRIT 36.2 % (42.0-52.0); HEMOGLOBIN 12.3 g/dL (14.0-18.0); IMM GRAN# 0.02 X1000 (0.0-0.04); IMM GRAN% 0.3 % (0.0-0.5); LYMPH# 3.16 X1000 (1.2-3.4); LYMPH% 48.7 % (20.5-51.1); MCH 30.5 PG (27-31); MCV 89.8 FL (81-99); MONO% 10.8 % (1.7-9.3); MPV 11.5 FL (7.4-10.4); NEUT# 1.74 X1000 (1.4-6.5); NEUT% 26.8 % (42.2-75.2); PLT 180 X1000 (130-400); RBC 4.03 XMIL (4.7-6.1); RDW 12.8 % (11.5-14.5); WBC 6.49 X1000 (4.8-10.8)
[2019-05-26 07:47] LABS: AGAP 13; BUN 7 mg/dL (8-22); CALCIUM 9.3 mg/dL (8.8-10.2); CHLORIDE 96 mmol/L (98-107); COSMO 268; CREATININE 0.8 mg/dL (0.7-1.2); ESTIMATED GFR > 60; GLUCOSE 97 mg/dL (70-104); POTASSIUM 3.9 mmol/L (3.5-5.1); SODIUM 135 mmol/L (136-145); TCO2 26 mmol/L (25-35)
[2019-05-26] MEDS: SUBOXONE 2 MG/0.5 MG SL SCH ×2 (09:09→22:13)
[2019-05-26] MEDS: NICODERM PATCH TD SCH (09:09)
[2019-05-26] MEDS: COLACE PO SCH (09:09)
[2019-05-26] MEDS: MIRALAX PO SCH (09:10)
--- NOTE | 2019-05-26 16:07 | PROGRESS NOTE ---
DATE: 05/26/2019 SUBJECTIVE: Patient has no major complaints. He is worried about going home tomorrow. He will have completed treatment. OBJECTIVE: Blood pressure is 105/63, heart rate of 65, respiratory rate 20, temperature 98.2 degrees.Cardiovascular: Regular rate and rhythm. Pulmonary: Bilateral breath sounds, clear to auscultation. GI: GI was soft, nontender, nondistended. Bowel sounds are positive. LABORATORY DATA: White count 6, hemoglobin and hematocrit 12 and 36, platelets 180,000. PROBLEM LIST: 1. Methicillin resistant staphylococcus aureus bacteremia. This is day 13 of day 14 of daptomycin. So I think tomorrow will be done. 2. Hepatitis C. He has genotype 1a. We will have to arrange outpatient follow-up and treatment. DISPOSITION: Anticipate discharge tomorrow. He is kind of requesting a few more days to settle out because he is homeless. We were working with Social Work about a safe plan of discharge. cc: Ezequiel Kowalski MD
[2019-05-26] MEDS: CUBICIN 500 MG in NS 100 ML IV SCH (16:40)
[2019-05-26] MEDS: ZOFRAN IV PRN (17:26)
[2019-05-27] MEDS: BENADRYL PO PRN ×2 (01:31→13:44)
[2019-05-27] MEDS: LOVENOX SUBQ SCH (05:37)
[2019-05-27] MEDS: PRILOSEC PO SCH (06:28)
[2019-05-27] MEDS: SUBOXONE 2 MG/0.5 MG SL SCH (08:47)
[2019-05-27] MEDS: COLACE PO SCH (08:47)
[2019-05-27] MEDS: NICODERM PATCH TD SCH (08:47)
[2019-05-27] MEDS: MIRALAX PO SCH (08:49)
[2019-05-27 15:13] VITALS: BP 132/77
--- NOTE | 2019-05-27 21:59 | DISCHARGE SUMMARY ---
ADMISSION DATE: 05/12/2019 DISCHARGE DATE: 05/27/2019 DISPOSITION: Home. CONSULTATIONS DURING THIS ADMISSION: 1. GI was consulted. Patient was seen by Dr. Evans. 2. Cardiology was consulted. Patient was seen by Dr. King. INVASIVE PROCEDURES DURING THIS ADMISSION: Transesophageal echocardiogram was done by Dr. King, which was negative for any endocardial vegetations. IMAGING STUDIES OF SIGNIFICANCE: Chest x-ray showed no evidence of acute disease. ADMISSION DIAGNOSES: 1. Recent methicillin-susceptible Staphylococcus aureus bacteremia. 2. Nausea and vomiting. 3. Generalized weakness. 4. Hepatitis C. 5. Polysubstance abuse. DIAGNOSES AT TIME OF DISCHARGE: 1. Methicillin-susceptible Staphylococcus aureus bacteremia. The patient has had 14 days of IV antibiotics. Subsequent blood cultures have been negative for 5 days. 2. History of intravenous drug use with urine toxicology on presentation positive for methamphetamines. 3. Hepatitis C. 4. Tobacco use and abuse. The patient has been counseled. 5. Alleged being homeless. DISCHARGE MEDICATIONS: None. PRESENTING COMPLAINT: Nausea, vomiting, dizziness. HISTORY OF PRESENTING COMPLAINT: Mr. Shaw is a 33-year-old, IV drug user, who was admitted to [facility] on two occasions from March to early May, left [facility] on two occasions, the last being 05/07/2019, after he was there for about 7 days of IV antibiotics. Apparently, after leaving, he started becoming nauseated and dizzy, came to the emergency department at [place], and he was found to be urine drug screen positive for methamphetamine. At some point, he was also hypotensive. He was subsequently transferred from [place] to [facility] for higher level of care. HOSPITAL COURSE: Mr. Shaw was admitted to the medical floor, started on IV spectrum antimicrobial. The blood culture came back positive for MRSA. Antibiotic was switched to daptomycin. Mr. Shaw has been treated for 14 days of IV antibiotics, the last being today. His repeat blood cultures have been negative. His white cell count is normal. He has been completely afebrile and his vitals are stable. This morning when I saw him, his male partner was also at the bedside, and the mother for his male partner was at the bedside. Both of them said Mr. Shaw was okay to go back with them. I understand that Mr. Shaw said he did not want to go to his partner's house because he is scared that there are drugs over there and he might be tempted to use it. Unfortunately, he has been given multiple addresses about shelters that will be able to accept him, but he just does not seem to be willing to go. He is, however, medically stable for discharge. He is pending final arrangement with Social Work. TIME SPENT FOR DISCHARGE: 38 minutes. cc: Saul Motley MD
== END 2019-05-27 16:14 | disposition home or self-care (01) | DRG 872 ==
LOC: P.ED 21:43 → P.MEDSURG 05-12 13:12 → SUATTDRO 05-12 13:12 → 3N 05-17 20:04
PROVIDERS: ATTEND Internal Medicine